=== PATIENT | male | born 1985 | race African-American/Black ===

== ENCOUNTER 2020-08-17 19:34 | Emergency (ER) | payer OTHER ==
[~2020-08-17] VITALS: Ht 172.7 cm; Wt 79.1 kg
[2020-08-17 19:35] VITALS: BP 122/71
--- NOTE | 2020-08-17 21:02 | REPVR ---
PROCEDURE INFORMATION: Exam: XR Left Foot Exam date and time: 08/17/2020 8:01 PM Age: 34 years old Clinical indication: Other: Trauma; Additional info: Injury TECHNIQUE: Imaging protocol: XR Left foot. Views: 3 or more views. COMPARISON: No relevant prior studies available. FINDINGS: Bones/joints: No acute fracture. Diffuse demineralization of the bones. Soft tissues: Normal. IMPRESSION: No acute abnormality. Electronically signed by: Josaaft Carpio On 08/17/2020 21:02:13 PM
== END 2020-08-17 22:08 | disposition home or self-care (01) ==
LOC: M ED 19:34
DX: S93.602A Unspecified sprain of left foot, initial encounter (principal); X50.9XXA Other and unspecified overexertion or strenuous movements or postures, initial encounter; Y92.89 Other specified places as the place of occurrence of the external cause; Y93.66 Activity, soccer; F17.210 Nicotine dependence, cigarettes, uncomplicated